=== PATIENT | female | born 1980 | race Caucasian/White ===

== ENCOUNTER 2021-04-23 01:50 | Emergency (ER) | payer OTHER, SELFPAY ==
--- NOTE | ~2021-04-23 | XR_ITS ---
XR chest 2V DATE: 04/23/2021 02:30 INDICATION: Shortness of breath TECHNIQUE: PA and lateral views COMPARISON: None FINDINGS: Normal heart size. No hilar or mediastinal enlargement. The lungs are clear. No pleural eff usion or pulmonary vascular congestion or pneumothorax. Included skeletal structures are unremarkable. IMPRESSION: Negative Reviewed, dictated and finalized at location A. IMPRESSION: Negative
--- NOTE | 2021-04-23 01:54 | ECG_ITS ---
Measurements Intervals [place] Rate: 67 P: 6 CO: 130 QRS: 59 QRSD: 102 T: 38 QT: 400 QTc: 423 Interpretive Statements SINUS RHYTHM INCOMPLETE RIGHT BUNDLE BRANCH BLOCK BASELINE WANDER- V5 BORDERLINE ECG Electronically Signed On 04-23-2021 6:02:53 CDT by Daniele Burdick D.O.
[2021-04-23 01:55] VITALS: BP 137/100; PULSE 71; RESP 16; TEMP 36.6; O2SAT 99
[2021-04-23 02:14] LABS: Basophils Percent Auto 0.3 % (0.2-1.2); Eosinophils Absolute Auto 0.2 K/mm3 (0-0.3); Eosinophils Percent Auto 2.2 % (0-4.4); Hematocrit 38.1 % (37.0-47.0); Hemoglobin 13.3 g/dL (12.0-15.0); Immature Granulocyte Absolute 0.02 K/mm3 (0.00-0.031); Immature Granulocyte Percent A 0.3 % (0-0.5); Lymphocytes Absolute Auto 3.73 K/mm3 (0.9-3.2); Lymphocytes Percent Auto 47.2 % (18.3-44.2); Mean Corpuscular HGB Conc 34.9 g/dl (32-36); Mean Corpuscular Hemoglobin 33.4 pg (26-34); Mean Corpuscular Volume 95.7 fl (80-100); Mean Platelet Volume 9.2 fl (7.4-10.4); Monocytes Absolute Auto 0.7 K/mm3 (0.1-0.6); Monocytes Percent Auto 8.6 % (2.6-8.5); Neutrophils Absolute Auto 3.3 K/mm3 (1.3-6.7); Neutrophils Percent Auto 41.4 % (45.5-73.1); Platelet Count Result 201 k/mm3 (150-375); Red Blood Count 3.98 M/mm3 (4.2-5.4); Red Cell Distribution Width 12.1 % (11.5-14.5); White Blood Count 7.9 K/mm3 (4.5-10.0)
[2021-04-23 02:30] LABS: Anion Gap 9 mmol/L (8-16); Blood Urea Nitrogen 14 mg/dL (7-17); Calcium 9.8 mg/dL (8.4-10.2); Carbon Dioxide 23 mmol/L (22-30); Chloride 103 mmol/L (98-107); Estimated CRCL calculation 61 ml/min; Estimated Glomerular Filt Rate > 60; Glucose 88 mg/dL (65-110); Potassium 3.9 mmol/L (3.4-5.0); Sodium 135 mmol/L (137-145)
[2021-04-23 02:36] LABS: Atypical Lymphocytes Present; Platelet Estimate Adequate (Adequate)
[2021-04-23 06:30] VITALS: BP 101/66; PULSE 59; PULSE 62; RESP 14; TEMP 36.7; O2SAT 100; O2SAT 99
--- NOTE | 2021-04-23 06:34 | ED.SOB ---
HPI - SOB/Dyspnea General Chief Complaint: Shortness of Breath/Dyspnea Stated Complaint: DIFFICULTY BREATHING X 5 WEEKS Time Seen by Provider: 04/23/21 05:51 Source: patient and RN notes reviewed Mode of arrival: ambulatory Limitations: no limitations History of Present Illness HPI Narrative: This is a 40 year old female who presents for evaluation of intermittent shortness of breath. She received some troubling news 5 weeks ago , and she has been having intermittent shortness of breath since then. She reports her shortness of breath is random. It is worse with stress. She denies associated chest pain, nausea, vomiting or dizziness. She reports chronic cough but denies fever or chills. Denies history of PE, DVT, leg swelling or calf pain. She denies taking contraception. Related Data Allergies Allergy/AdvReac Type Severity Reaction Status Date / Time No Known Allergies Allergy Unverified 04/28/18 16:37 Review of Systems Review of Systems: All systems reviewed & are unremarkable except as noted in HPI and below PMFSH Past Medical History Medical History (Updated 04/23/21 @ 06:40 by Mya Montano MD) Patient denies medical problems Family History Family History (Updated 04/11/16 @ 23:19 by DOCTOR UNKNOWN) Mother Family history of diabetes mellitus in first degree relative Father Family history of malignant neoplasm of brain, Onset Age: 32 Other Diabetes mellitus Social History Social History (Updated 04/23/21 @ 06:37 by Mya Montano MD) Smoking packs per day: 1 Smoking cigarettes per day: 20.0 Smoking status: Current every day smoker Smoking end date: 03/03/98 Alcohol intake: never Substance use: never Gender identity (if verbalized by the patient): Female Exam Const: General: no acute distress Orientation/consciousness: patient oriented x3 Other: patient was sleeping on my arrival, now alert Eyes: EOM: EOMs intact bilaterally Chest: Chest palpation & inspection: normal inspection of the chest Resp: Effort & Inspection: normal respiratory effort and no retractions Auscultation: clear to auscultation bilaterally Cardio: Rate: regular rate Rhythm: regular rhythm Heart sounds: no murmurs GI: GI Palp: Yes Soft to palpation, No Tenderness to palpation present (GI) and No Guarding due to palpation present (GI) Auscultation: normal bowel sounds Skin: General skin exam: normal color Rashes: no rashes Neuro: General: patient oriented x3, moves all extremities and CN's II-XI intact bilaterally Extrem: General: normal to inspection and no pedal edema Other: no calf pain Psych: Mental Status: mental status grossly normal Affect: normal affect Course Reevaluation(s) Reevaluation #1: Patient is laying in bed with no distress, normal oxygen saturation. chest xray is normal as well. She is perc negative. She will follow up with PCP Date: 04/23/21 Time: 06:38 Vital Signs Vital signs: Vital Signs Temperature 97.9 F 04/23/21 01:55 Pulse Rate 71 04/23/21 01:55 Respiratory Rate 16 04/23/21 01:55 Blood Pressure 137/100 H 04/23/21 01:55 Pulse Oximetry 99 04/23/21 01:55 Temperature 98.0 F 04/23/21 06:30 Pulse Rate 84 04/23/21 07:00 Respiratory Rate 21 H 04/23/21 07:00 Blood Pressure 104/63 04/23/21 07:00 Pulse Oximetry 97 04/23/21 07:00 MDM - SOB/Dyspnea Lab Data Attestation: I reviewed the patient's lab results. Result diagrams: 04/23/21 02:08 04/23/21 02:08 Labs: Lab Results 04/23/21 04/23/21 Range/Units 02:08 02:08 WBC 7.9 (4.5-10.0) K/mm3 RBC 3.98 L (4.2-5.4) M/mm3 Hgb 13.3 (12.0-15.0) g/dL Hct 38.1 (37.0-47.0) % MCV 95.7 (80-100) fl MCH 33.4 (26-34) pg MCHC 34.9 (32-36) g/dl RDW 12.1 (11.5-14.5) % Plt Count 201 (150-375) k/mm3 MPV 9.2 (7.4-10.4) fl Immature Gran % (Auto) 0.3 (0-0.5) % Neut % (Auto) 41.4 L (45.5-73.1) % Lymph %
[2021-04-23 07:00] VITALS: BP 104/63; PULSE 84; RESP 21; O2SAT 97
== END 2021-04-23 07:00 | disposition home or self-care (01) ==
PROVIDERS: Emergency Provider General Practice
DX: R06.00 Dyspnea, unspecified (principal); I45.10 Unspecified right bundle-branch block; Z87.891 Personal history of nicotine dependence
CPT/HCPCS: 36415; 71046; 80048; 85025; 93005; 99284

== ENCOUNTER 2022-11-05 12:14 | Outpatient (CLI) | payer OTHER, SELFPAY ==
--- NOTE | ~2022-11-05 | MMUS_ITS ---
EXAMINATION: MM diagnostic aletha BI w celsa, US breast BI complete HISTORY: Left breast lump TECHNIQUE: Full field and spot ML, MLO and CC 3-D tomosynthesis images of both breasts were performed and synthetic 2-D images were generated. CAD analysis was submitted and interpreted. High resolution bilateral complete breast ultrasound examination including all 4 quadrants and subareolar area of ea ch breast was performed. COMPARISON: October 20, 2006 left breast ultrasound BREAST PARENCHYMAL COMPOSITION: There are scattered areas of fibroglandular density. FINDINGS: MAMMOGRAPHIC FINDINGS: There is mild fibroglandular asymmetry. Possible 4 mm mass in the posterior upper outer right breast (MLO Tomosynthesis image 13/62). No suspicious mass or architectural distortion is evident in the posterior lower central left breast were the patient complains of breast lump. ULTRASOUND: Right breast: 6:00 2 cm from nipple: Parallel circumscribed approximately 2 x 3.6 mm hypoechoic area, probably robin gn 6:00 3 cm from nipple: Parallel circumscribed 2.3 x 4.3 mm without internal vascularity or posterior shadowing 9:00 2 cm from nipple: Parallel circumscribed hypoechoic solid lesion measuring 4.6 x 2.7 x 5.1 mm wi thout internal vascularity or posterior shadowing Left breast: Subareolar area: Parallel circumscribed 2.9 x 5.3 x 4.6 mm hypoechoic solid lesion without internal v ascularity or posterior shadowing IMPRESSION: 1. Probable benign findings 2. Bilateral diagnostic mammogram and breast ultrasound follow-up in 6 months is recommended BI-RADS category 3, probably benign findings. Reviewed, dictated and finalized at location A. 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 Probable benign findings 2. Bilateral diagnostic mammogram and breast ultrasound follow-up in 6 months i s recommended BI-RADS category 3, probably benign findings.
== END 2022-11-05 12:15 | disposition home or self-care (01) ==
PROVIDERS: PCP Physician Assistant; Visit Provider Physician Assistant
DX: N63.20 Unspecified lump in the left breast, unspecified quadrant (principal); R92.8 Other abnormal and inconclusive findings on diagnostic imaging of breast
CPT/HCPCS: 76641; 77062; 77066; G0279

== ENCOUNTER 2023-01-06 08:32 | Outpatient (CLI) | payer OTHER, SELFPAY ==
--- NOTE | ~2023-01-06 | CT_ITS ---
EXAMINATION: CT sinus wo con DATE: 01/06/2023 09:02 INDICATION: Chronic sinusitis TECHNIQUE: Computed tomography (CT) of the paranasal sinuses was performed without intravenous contra st. The dose-length product (DLP) was 285.18 mGy-cm. Iterative reconstruction was used. COMPARISON: None FINDINGS: There is normal development and pneumatization of the paranasal sinuses. There is mild muco fernandez thickening inferiorly in the right maxillary sinus. The frontal, sphenoid, ethmoid, and left maxi llary sinuses are clear. The bilateral ostiomeatal complexes are patent. Visualized soft tissues are unremarkable. IMPRESSION: 1. Mild mucosal thickening of the right maxillary sinus. Reviewed, dictated and finalized at location L.
== END 2023-01-06 08:33 | disposition home or self-care (01) ==
PROVIDERS: PCP Physician Assistant; Visit Provider Otolaryngology
DX: J32.9 Chronic sinusitis, unspecified (principal)
CPT/HCPCS: 70486

== ENCOUNTER 2023-04-16 23:00 | Emergency (ER) | payer OTHER, SELFPAY ==
--- NOTE | ~2023-04-16 | XR_ITS ---
AP and lateral views of the right tibia/fibula Clinical History: Trauma Findings: No acute fracture or dislocation is seen. Osseous alignment is anatomic. Joint spaces are p reserved without significant erosive or degenerative change. Soft tissues are unremarkable. Impression: Unremarkable right tib-fib radiographs. Reviewed, dictated and finalized at [facility]. Impression: Unremarkable right tib-fib radiographs.
[2023-04-16 23:02] VITALS: BP 130/84; PULSE 88; RESP 15; TEMP 36.8; O2SAT 100
--- NOTE | 2023-04-17 01:02 | ED.SKABFB ---
HPI - Skin/Abscess/Foreign Bdy General Chief complaint: Skin/Abscess/Foreign Body Stated complaint: gashed leg open a week ago, infected now Time Seen by Provider: 04/17/23 00:14 Source: patient Mode of arrival: ambulatory Limitations: no limitations History of Present Illness HPI narrative: 42-year-old female presents today with concerns of possible infection to right lower leg. Patient had fallen and hit her leg on a ladder approximately 1 week ago. Area is now reddened and she has noted increased pain. At times she does keep it covered sometimes she does not. Antibiotic ointment if she has it covered. Denies any fevers, body aches, chills. Patient has intermittently been on antibiotics for the last week. She was supposed to be taking Bactrim twice a day but states she very rarely took it. Patient was taking this for sinus issues. Related Data Allergies Allergy/AdvReac Type Severity Reaction Status Date / Time No Known Allergies Allergy Unverified 04/28/18 16:37 Review of Systems Review of Systems: All systems reviewed & are unremarkable except as noted in HPI and below PMFSH Past Medical History Medical History Patient denies medical problems Family History Family History Mother Family history of diabetes mellitus in first degree relative Father Family history of malignant neoplasm of brain, Onset Age: 32 Other Diabetes mellitus Social History Social History Smoking packs per day: 1 Smoking cigarettes per day: 20.0 Smoking status: Current every day smoker Smoking end date: 03/03/98 Alcohol intake: never Substance use: never Gender identity (if verbalized by the patient): Female Exam Const: General: cooperative, healthy appearing, comfortable, no acute distress and well developed Orientation/consciousness: patient oriented x3 HENMT: Head: normal to inspection Eyes: General: appearance normal, both eyes and all related structures Resp: Effort & Inspection: normal respiratory effort and able to speak in complete sentences Auscultation: clear to auscultation bilaterally Cardio: Rate: regular rate Rhythm: regular rhythm Heart sounds: S1 normal heart sound present and S2 normal heart sound present Skin: Other: Right negron with approximate 1-1/2 to 2 cm diameter wound. Erythema surrounding. Warm to touch. No drainage noted. Wound appears scabbed but is dark and black in color. Patient did have pictures and coloring is similar to what wound look like 1 day after. Neuro: General: patient oriented x3 Course Vital Signs Vital signs: Vital Signs Temperature 98.3 F 04/16/23 23:02 Pulse Rate 88 04/16/23 23:02 Respiratory Rate 15 04/16/23 23:02 Blood Pressure 130/84 04/16/23 23:02 Pulse Oximetry 100 04/16/23 23:02 Oxygen Delivery Room Air 04/16/23 23:02 Temperature 98.3 F 04/16/23 23:02 Pulse Rate 88 04/16/23 23:02 Respiratory Rate 15 04/16/23 23:02 Blood Pressure 130/84 04/16/23 23:02 Pulse Oximetry 100 04/16/23 23:02 Oxygen Delivery Room Air 04/16/23 23:02 MDM - Skin/Abscess/Foreign Bdy MDM Narrative Medical decision making narrative: 42-year-old female HPI as noted. No tachycardia or fevers noted. No indication for lab work at this time. Due to pain with ambulation and extreme pain with palpation x-ray was completed. No obvious acute process noted on tibia-fibula x-ray. Patient be discharged home with p.o. antibiotics with plan follow-up with primary care. Discussed importance of taking antibiotics as prescribed. Patient verbalized understanding. Differential Diagnosis Differential diagnosis: Likely abscess of skin or subcutaneous tissue, cellulitis and other (Wound) Imaging Data Attestation: I personally reviewed and interpreted this imaging study as foll
== END 2023-04-17 02:14 | disposition home or self-care (01) ==
PROVIDERS: Emergency Provider Nurse Practitioner Family; PCP Physician Assistant
DX: L03.115 Cellulitis of right lower limb (principal); Z87.891 Personal history of nicotine dependence
CPT/HCPCS: 73590; 99283

== ENCOUNTER 2023-07-30 08:34 | Emergency (ER) | payer OTHER, SELFPAY ==
[2023-07-30 08:41] VITALS: BP 124/69; PULSE 83; RESP 16; TEMP 36.7; O2SAT 100
--- NOTE | 2023-07-30 08:54 | ED.EAR ---
HPI - Ear Problem General Chief complaint: Ear Stated complaint: Ears Irritation Time Seen by Provider: 07/30/23 08:50 Source: patient and RN notes reviewed Mode of arrival: ambulatory Limitations: no limitations History of Present Illness HPI Narrative: 42-year-old female presents concern for bilateral ear ringing and small amount of bleeding from the ears. Reports she has been using Q-tips thinking she may have had something in her ears. She reports she has had rhinorrhea nasal congestion for 3-4 days, she is not taking any medications for any of this. An unrelated complaint, she reports she has had left lower dental pain, she has been unable to get into her dentist. She denies dental injury. She denies fever, difficulty swallowing MD Complaint: ear pain Related Data Home Medications Medication Instructions Recorded Confirmed No Home Medications 07/30/23 07/30/23 Allergies Allergy/AdvReac Type Severity Reaction Status Date / Time No Known Allergies Allergy Verified 07/30/23 08:57 Review of Systems Review of Systems: CONSTITUTIONAL: Denies malaise, chills, sweats, or fever. EYES: Denies visual changes, redness, or discharge. ENT: Reports rhinorrhea, congestion. Denies sinus pain, and sore throat. Reports bilateral ear ringing, slight amount of bleeding from the ear canals. Reports left lower dental pain CARDIOVASCULAR: Denies chest pain, palpitations, or edema. RESPIRATORY: Denies cough. Denies dyspnea. GASTROINTESTINAL: Denies abdominal pain, nausea, vomiting, diarrhea SKIN: Denies rash or itching. MUSCULOSKELETAL: Denies myalgia. NEUROLOGIC: Denies headache. All systems reviewed & are unremarkable except as noted in HPI and below PMFSH Past Medical History Medical History Patient denies medical problems Family History Family History Mother Family history of diabetes mellitus in first degree relative Father Family history of malignant neoplasm of brain, Onset Age: 32 Other Diabetes mellitus Social History Social History Smoking packs per day: 1 Smoking cigarettes per day: 20.0 Smoking status: Current every day smoker Smoking end date: 03/03/98 Alcohol intake: never Substance use: never Gender identity (if verbalized by the patient): Female Comments At time of signature, agree with nursing past medical, surgical, social and family history. There is no relevant family history pertinent to the presenting complaint Exam Narrative: GENERAL: Well-appearing, well-nourished, and in no acute distress. HEAD: Normocephalic EYES: PERRLA, conjunctivae clear ENT: Nares clear, clear discharge. Mucous membranes moist. TM pearly giordano with dull light reflex bilaterally; very mild irritation in bilateral ear canals without infection, no tragal tenderness. Oropharynx not erythematous without lesions. Tonsils not enlarged and without exudate, no drooling, no hoarseness, no trismus, uvula midline. Caries noted bilateral lower and upper teeth, no gingival swelling, abscess noted. No jaw tenderness or swelling NECK: Supple. No lymphadenopathy CHEST: Clear to auscultation, breath sounds equal. No wheezing, rhonchi, rales, or stridor. No respiratory distress, speaks in full sentences. HEART: Regular rate and rhythm. No murmur heard. SKIN: Warm, dry, no rash. NEURO: Alert and oriented x3. PSYCH: Normal mood and affect Course Course Emergency Course: Patient is aware of diagnosis, understands and agrees to treatment plan. Anticipatory guidance given. Patient agrees to follow-up as directed and is aware of reasons to seek care at the emergency department. Portions of this record may have been created with voice recognition software Level of Care: Express Care Visit Vital Signs Vital signs: Vital Signs Temperature 98.1 F
== END 2023-07-30 09:05 | disposition home or self-care (01) ==
PROVIDERS: Emergency Provider Nurse Practitioner; PCP Physician Assistant
DX: J06.9 Acute upper respiratory infection, unspecified (principal); K08.89 Other specified disorders of teeth and supporting structures; Z87.891 Personal history of nicotine dependence
CPT/HCPCS: 99213; G0463

== ENCOUNTER 2023-11-16 12:47 | Outpatient (CLI) | payer OTHER, SELFPAY ==
--- NOTE | ~2023-11-16 | MMUS_ITS ---
EXAMINATION: MM diagnostic aletha BI w celsa, US breast BI limited HISTORY: Six-month follow-up of bilateral probably benign findings TECHNIQUE: ML, CC, MLO full field and spot 3-D tomosynthesis images of both breasts were performed an d synthetic 2-D images were generated. CAD analysis was submitted and interpreted. High resolution bi lateral upper outer, lower outer quadrant and bilateral subareolar breast ultrasound examination was performed. COMPARISON: 11/05/2022 bilateral diagnostic mammogram and bilateral breast ultrasound BREAST PARENCHYMAL COMPOSITION: There are scattered areas of fibroglandular density. FINDINGS: MAMMOGRAPHIC FINDINGS: No suspicious mass or architectural distortion, malignant calcification, skin thickening or retractio n or significant new or developing density is detected. ULTRASOUND: Right breast: 10:00 2 cm from nipple: Probable septated cyst measuring approximately 3.6 x 4 x 6 mm. No internal va scularity or posterior shadowing. No suspicious mass or shadowing of the upper outer or lower outer quadrant or subareolar right breast is detected Left breast: No suspicious mass or shadowing is detected in the upper outer or lower outer quadrants or subareolar area. IMPRESSION: 1. Benign finding 2. Routine annual mammographic screening is recommended BI-RADS Category 2: Benign finding(s). Reviewed, dictated and finalized at location A. SUPERVISOR IMPRESSION: 1. Benign finding 2. Routine annual mammographic screening is recommended BI-RADS Category 2: Benign finding(s).
== END 2023-11-16 12:48 | disposition home or self-care (01) ==
LOC: ANHIMG 12:50
PROVIDERS: PCP Physician Assistant; Visit Provider Physician Assistant
DX: N63.20 Unspecified lump in the left breast, unspecified quadrant (principal)
CPT/HCPCS: 76642; 77062; 77066; G0279

== ENCOUNTER 2025-08-29 10:40 | Outpatient (CLI) | payer OTHER, SELFPAY ==
--- NOTE | ~2025-08-29 | XR_ITS ---
XR lumbar spine 2-3V Indication: acute midline low back pain Comparison: None Findings: The vertebral heights are intact. No fracture or subluxation. Severe loss of disc height at L5-S1. Soft tissues unremarkable Impression: No acute abnormality. Reviewed, dictated and finalized at location P. RTISING SALES REPRESENTATIVE Impression: No acute abnormality.
--- OUTSIDE RECORDS SUMMARY | 2025-08-29 12:42 | XMS_ITS | Clinical Summary ---
Author Organization [facility] [employer] Address [address] [place] [address] Care Team Providers Care Copy Chief Name Role Phone Katelynn Arteaga PA-C Primary Care Provider Source Comments [facility] [employer],non-owned Affiliates and Associated Physician Practices is amultiple site organization consisting of ambulatory clinics and hospital sitesin [place], [place], [place] and [place]. This disclosure is being madepursuant to the Care Everywhere program and may not contain all information available regarding this patient. Last updated 18.[facility] [employer] Allergies No known active allergies Medications * Be aware that medications may not be up to date on this document. Alwaysverify current medications with the patient. ibuprofen (MOTRIN) 400 MG tablet Take 400 mg by mouth every 6 hours as needed for Pain Active FLUoxetine (PROZAC) 10 MG capsule Take 10 mg by mouth once daily 1 Active HYDROcodone-ave taminophen (NORCO) 5-325 MG tablet Take 1 (one) tablet by mouth every 6 hours as needed for Pain (Take for severe pain only alternate with tylonyl for mild to moderate pain) 30 tablet 1 Active cyclobenzaprine (FLEXERIL) 10 MG tablet Take 1 (one) tablet by mouth every 8 hours Take as needed from muscle spasms 40 tablet 1 Active hydrOXYzine pamoate (VISTARIL) 50 MG capsule Take 50 mg by mouth 2 times daily as needed 1 Active Active Problems Problem Noted Date Diagnosed Date Radiculopathy of lumbar region 05/23/2021 Body mass index (BMI) of 26.0-26.9 in adult 09/14 Overview (06/06/2021): Last Assessment & Plan: Condition: stable Educated patient on normal BMI range of 18.5 to 24.9 Advised to monitor nutrition to not exceed caloric needs, or as indicated by PCP in order to maintain a healthy weight and BMI. Advised to engage in aerobic physical activity, if indicated to be safe by PCP, to assist with maintaining a healthy weight and BMI. Advised to follow up with PCP to address nutrition as needed to assist with reaching or maintaining a healthy weight and BMI. Follow up in: three months Chronic low back pain 10/02/2020 Overview (06/06/2021): Last Assessment & Plan: Condition: stable Take pain medication as prescribed. Practice non-pharmacological pain reduction techniques/interventions such as, deep breathing exercises, massage, gel packs, if indicated to be safe by PCP. Monitor for worsening of back pain in combination with other signs and symptoms of worsening disease and see PCP as soon as possible. Follow up in: three months Lumbar spondylosis 10/02/2020 Overview (06/06/2021): Last Assessment & Plan: Condition: stable Follow up in: three months Routine health maintenance 10/02/2020 Overview (06/06/2021): Last Assessment & Plan: Condition: stable Follow up in: one year or sooner as recommended Tobacco abuse 10/02/2020 Overview (06/06/2021): Last Assessment & Plan: Condition: stable Discussed risk of Lung Cancer, COPD, PAD, Stroke, Heart Attack and . Discussed pharmaceutical and non-pharmaceutical options to quit. Encouraged to quit. [phone] phone number discussed. Follow up in: three months Lumbar radiculopathy 10/02/2020 Overview (06/06/2021): Last Assessment & Plan: Condition: stable Follow up in: three months Induction of labor 09/04/2008 Overview (09/04/2008): Pitocin induction of labor PIH Post-dates Pre-op evaluation Family History Medical History Relation Name Comments Heart Failure Mother Relation Name Status Comments Mother Social History Tobacco Use Types Packs/Day Years Used Date Smoking Tobacco: Every Day Cigarettes Smokeless Tobacco: Never Tobacco Cessation:Ready to Q uit: Not Asked; Counseling Given: Not Answered Alcohol Use Standard Drinks/Week Comments Yes 0 (1 standard drink = 0.6 oz pur e alcohol) occasionally PHQ-2 Answer Date Recorded Patient Health Questionnaire-2 Score 0 03/31/2024 Comments No Sex and Gender Information Value Date Recorded Sex Assigned at Not on file Legal Sex 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 Gender Identity Not on file Sexual Orientation Not on file 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 Not on file Not on file Not on file Last Filed Vital Signs Vital Sign Reading Time Taken Comments Blood Pressure 98/62 05/24/2021 4:00 AM CDT Pulse 72 05/24/2021 4:00 AM CDT Temperature 36.8 C (98.3 F) 05/24/2021 4:00 AM CDT Respiratory Rate 16 05/24/2021 4:00 AM CDT Oxygen Saturation 97% 05/24/2021 4:00 AM CDT Inhaled Oxygen Concentration - - Weight 59.9 kg (132 lb) 05/12/2024 11:58 AM CDT Height 152.4 cm (5') 05/12/2024 11:58 AM CDT Body Mass Index 25.78 05/12/2024 11:58 AM CDT Plan of Treatment Health Maintenance Due Date Last Done Comments COLOGUARD (AGES 45-75) - COL ON CA SCREENING 1978 COLON MONITORING 1978 COLONOSCOPY - COLON CA SCREENING 1978 CT COLONOGRAPHY - COLON CA SCREENING 1978 Colorectal Cancer Screening 1978 FIT - COLON CA SCREENING 1978 FLEX SIG - COLON CA SCREENING 1978 LIPID TESTING 1978 MAMMOGRAM 1978 HIV SCREENING 1993 HEPATITIS C SCREENING 08/17/1996 DTAP/TDAP/TD VACCINES (1 - Tdap) 1997 HEPATITIS B VACCINE (1 of 3 - 19+ 3-dose series) 1997 PNEUMOCOCCAL VACCINE (1 of 2 - PCV) 1997 SCREENING FOR DIABETES 05/24/2024 , 05/21/2021 DEPRESSION SCREENING 09/14/2024 03/31/2024 COVID-19 VACCINE (1 - 2024-2 6 season) 2025 INFLUENZA VACCINE (#1) 2025 ZOSTER VACCINE (1 of 2) 2028 HIB VACCINE Aged Out No longer eligi ble based on patient's age to complete this topic HPV VACCINE Aged Out No longer eligi ble based on patient's age to complete this topic MENINGOCOCCAL (Group B) VACCINE SHARED DECISION-MAKING Aged Out No longer eligible based on patient's age to complete this topic MENINGOCOCCAL GROUPS A/C/Y/W VACCINE Aged Out No longer eligible b ased on patient's age to complete this topic Procedures Procedure Name Priority Date/Time Associated Diagnosis Comments BASIC METABOLIC PANEL (CALCIUM TOTAL) AM Draw 05/24/2021 2:27 AM CDT Radiculopathy of lumbar region from Last 3 Months or Most Recently Relevant to Health Maintenance Results * (ABNORMAL) BASIC METABOLIC PANEL (CALCIUM TOTAL) (05/24/2021 2:27 AM CDT) BUN 9 7 - 26 mg/dL 05/24/2021 4:01 AM [facility] Creatinine 0.71 0.56 - 0.96 mg/dL 05/24/2021 4:01 AM [facility] Sodium 137 136 - 145 mmol/L 05/24/2021 4:01 AM [facility] Potassium 4.1 3.5 - 4.5 mmol/L 05/24/2021 4:01 AM [facility] Chloride 106 98 - 107 mmol/L 05/24/2021 4:01 AM [facility] CO2 21(L) 22 - 29 mmol/L 05/24/2021 4:01 AM [facility] Glucose 205(H) 70 - 115 mg/dL 05/24/2021 4:01 AM [facility] Calcium 9.4 8.4 - 10.2 mg/dL 05/24/2021 4:01 AM [facility] Anion Gap 14 8 - 18 05/24/2021 4:01 AM [facility] BUN/Creatinine Ratio 13 7 - 23 05/24/2021 4:01 AM [facility] Osmolality Calculated 289 270 - 300 mOsm/kg 05/24/2021 4:01 AM [facility] eGFR by CKD-EPI >90 >=90 mL/min/1.7 3 m2 05/24/2021 4:01 AM [facility] Blood BLOOD SPECIMEN / Unknown Lab Venipuncture / Unknown 05/24/2021 2:27 AM CDT 05/24/2021 3:12 AM [facility] Homero Lawson MD LAB - CHEMISTRY ORDERABLES Anastacia garcia Result [facility] [address] [place] [address], [facility] [phone] from Last 3 Months or Most Recently Relevant to Health Maintenance Insurance [facility] WORK[employer] COMP Advance Directives * Full Code (Latest Code Status on File) Date Activated Date Inactivated Comments 09/04/2008 8:07 AM 09/07/2008 1:58 AM * Full Code Date Activated Date Inactivated Comments 06/20/2008 6:12 PM 06/21/2008 11:36 AM Care Teams Copy Chief Relationship Specialty Start Date End Date Katelynn Arteaga PA-C [address] [place] [phone] PCP - General Physician Financial Accountant 05/07/21
--- OUTSIDE RECORDS SUMMARY | 2025-08-29 12:42 | XMS_ITS | Clinical Summary ---
Author Organization [facility] Care Team Providers Care Stave Saw Operator Name Role Phone Unavailable Primary Care Provider Unavailabl e Social History Tobacco Use Types Packs/Day Years Used Date Smoking Tobacco: Never Assessed Comments Unknown Sex and Gender Information Value Date Recorded Sex Assigned at Not on file Legal Sex Female 11:03 AM CDT Gender Identity Not on file Sexual Orientation Not on file Plan of Treatment Health Maintenance Due Date Last Done Comments Hepatitis C Virus (HCV) Screening 1978 TdaP Immunization 1978 Hepatitis B Immunization (1 of 3 - 19+ 3-dose series) 1997 Pap Smear 1999 Cervical Cancer Screening (CCS) 2008 HPV/Cotest 2008 Cologuard 2023 Colonoscopy 2023 Colorectal Cancer Screening 2023 Immunochemical Fecal Occult Blood 2023 Influenza Immunization (#1) 2025 SARS-COV-2 Immunization ( season) 2025 Respiratory Syncytial Virus (RSV) Immunization (Adult) (1 - 1-dose 75+ series) 2053 DTaP/Tdap/Td Immunization Discontinued 1992, 05/28/1983, 02/11/1980, Additional history exists Human Papillomavirus (HPV) Immunization Aged Out No longer eligible based on patient's age to complete this topic Meningococcal Immunization (ACWY) Aged Out No longer eligible based on patient's age to complete this topic Pneumococcal Immunization Combined Aged Out No longer eligible based on patient's age to complete this topic Rotavirus Immunization Aged Out No lo nger eligible based on patient's age to complete this topic
--- OUTSIDE RECORDS SUMMARY | 2025-08-29 12:42 | XMS_ITS | Patient Health Record ---
Author Organization [facility] Address [address] [place] [address] Phone [phone] Care Team Providers Care Dam Tender Name Role Phone Abdulaziz Joiner Primary Care Provider [phone] Kat Vincent Unavailable [phone] Allergies No Known Allergies Reason For Referral Addressed Referral details can be found under 'Consultation Request Notes' section Medications Medication SIG (Take, Route, Frequency, Duration) Notes Start Date End Date Diagnosis (ICD Code) Status Sertraline HCl 50 MG Tablet 1 tablet Orally Once a day; Duration: 30 day(s) 06/01/2025 Major depression (ICD_10 - F32.9) Active Social History Tobacco Use: Social History Observation Description Date Details (start date - stop date) Former Smoker NA - 08/18/2024 Sex Observation Social History Observation Description Sex Observation Female Social History Primary Social History Social Info Question Answer Notes Living Arrangement Living Arrangement: Independent Parul ing Is this a supportive environment? Yes Single Question Alcohol Screening How many times in the past year have you had (4 for women, or 5 for men) or more drinks in a day? 0 Employment Status Employment Status: Employed [employer] Illicit Substance Usage Illicit Substance Usage: Yes Substance Used: Cannabis Interested in quitting: No Alcohol Use Alcohol Use Frequency: Weekly or Daily Type of alcohol consumed Liquor, Wine Tobacco Use: Social Info Question Answer Notes Tobacco Control (Standard) Tobacco use: Former smoker When did you stop smoking? 08/18/2024 How long has it been since you last smoked? 6-12 months Problems Problem Type SNOMED Code ICD Code Dates Problem Status W/U Status Risk Notes Problem Insomnia (302683165) Insomnia (G47.00) Added On:06/01 Active confirmed Problem Major depression (844982911) Major depression (F32.9) Added On:06/01 Active confirmed Problem Generalized anxiety disorder (73992750) JESSICA (generalized anxiety disorder) (F41.1) Added On:06/01 Active confirmed Problem Overweight (554422781) Over weight (E66.3) Added On:06/01 Active confirmed Problem Poor concentration (finding) (08666220) Concentration deficit (R41.840) Added On:06/01 Active confirmed Vital Signs Vital Sign Value Notes Appt Date Height 5ft in 06/01/2025 Weight 140 lb lbs 06/01/2025 BMI 27.34 kg/m2 06/01/2025 Encounters Date Time Type Facility Location Provider Diagnosis 10:00 AM [facility] (3008F) [address] [address] Kat Vincent Over weight E66.3 ; Major depression F32.9 ; JESSICA (generalized anxiety disorder) F41.1 ; Insomnia G47.00 and Concentration deficit R41.840 Assessments Encounter Date Diagnosis (ICD Code) Assessment Notes Treat ment Notes Section Notes 06/01/2025 Major depression (ICD-10 - F32.9) Learning About Depression material was published, Depression Treatment: Care Instructions material was published 06/01/2025 Over weight (ICD-10 - E66.3) Learning About Healthy Weight material was published 06/01/2025 JESSICA (generalized anxiety disorder) (ICD-10 - F41.1) Generalized Anxiety Disorder: Care Instructions material was published 06/01/2025 Insomnia (ICD-10 - G47.00) Insomnia: Care Instructions material was published 06/01/2025 Concentration deficit (ICD-10 - R41.840) 06/01/2025 Other Sertraline mate rial was published Plan Of Treatment No Information Insurance Providers Payer Name Payer Address Payer Phone Subscriber Number Group Number Insured Name Patient Relationship to Insured Coverage Start Date Coverage End Date [employer] [address] [place] [address] [id number] Sary Hdz Self - patient is the insured 5 [employer] [address] [place] [address] [id number] Sary Hdz Self - patient is the insured 5 Medical (General) History Medical History History ICD Code depression anxiety Surgical History Surgery Date(Month/Year) laproscopy 2005 4x c sectios microdysectomy 06/04 Hospitalization History Reason Date(Month/Year) see surgeries
== END 2025-08-29 10:41 | disposition home or self-care (01) ==
DX: M54.50 Low back pain, unspecified (principal)
CPT/HCPCS: 72100